=== PATIENT | male | born 1980 | race African-American/Black ===

== ENCOUNTER 2017-12-25 21:26 | Emergency (ER) | payer BC ==
[~2017-12-25 21:26] MED LIST: AMOX500C2 PO; APIX5TAB2 PO; HYDR-1231 PO; METO25TA2 PO; PNT40TEC PO
--- OUTSIDE RECORDS SUMMARY | 2017-12-26 05:43 | XMS REPORT | Continuity of Care Document ---
Author Author [facility] Address Unknown Phone Unavailable Allergies Active Description Code Type Severity Reaction Onset Reported/Identified Relationship to Patient Clinical Status Yes No Known Drug Allergies [id number] Drug Allergy Unknown N/A 05/10/2012 Medications There is no data. Problems Date Dx Coded Attending Type Code Diagnosis Diagnosed By 05/10/2012 Ot 786.52 05/10/2012 Ot 786.59 05/18/2012 LUIS FELIPE SINGH DO 786.50 CHEST PAIN 11/19/2013 BINA DEVRIES Ot 522.5 03/17/2014 ALMA LIU, MORRIS Cam Ot 882.0 03/17/2014 ALMA LIU, MORRIS Cam Ot E000.0 03/17/2014 ALMA LIU, MORRIS Cam Ot E849.3 03/17/2014 ALMA LIU, MORRIS Cam Ot E919.9 03/17/2014 MORRIS MARQUEZ MD Ot V06.1 07/05/2014 Ot 729.5 09/23/2014 RADHA BUSH MD Ot 910.4 09/23/2014 RADHA BUSH MD Ot E000.8 09/23/2014 RADHA BUSH MD Ot E906.4 09/27/2014 LEANNE DOVE MD Ot 278.00 09/27/2014 LEANNE DOVE MD Ot 397.0 09/27/2014 LEANNE DOVE MD Ot 424.0 09/27/2014 LEANNE DOVE MD Ot 427.31 09/27/2014 LEANNE DOVE MD Ot V85.38 09/27/2014 LEANNE DOVE MD Ot 278.00 09/27/2014 LEANNE DOVE MD Ot 397.0 09/27/2014 LEANNE DOVE MD Ot 424.0 09/27/2014 LEANNE DOVE MD Ot 427.31 09/27/2014 LEANNE DOVE MD Ot V85.38 09/27/2014 PETTY LIU, LEANNE Horan Ot 278.00 09/27/2014 PETTY LIU, LEANNE Horan Ot 397.0 09/27/2014 PETTY LIU, LEANNE Horan Ot 424.0 09/27/2014 PETTY LIU, LEANNE Horan Ot 427.31 09/27/2014 PETTY LIU, LEANNE Horan Ot V85.38 09/28/2014 PETTY LIU, LEANNE Horan Ot 278.00 09/28/2014 PETTY LIU, LEANNE Horan Ot 397.0 09/28/2014 PETTY LIU, LEANNE J Ot 424.0 09/28/2014 PETTY LIU, LEANNE J Ot 427.31 09/28/2014 PETTY LIU, LEANNE Horan Ot V85.38 09/28/2014 PETTY LIU, LEANNE Horan Ot 278.00 09/28/2014 PETTY LIU, LEANNE Horan Ot 327.23 09/28/2014 PETTY LIU, LEANNE Horan Ot 397.0 09/28/2014 PETTY LIU, LEANNE Horan Ot 424.0 09/28/2014 PETTY LIU, LEANNE Horan Ot 427.31 09/28/2014 PETTY LIU, LEANNE Horan Ot 786.59 09/28/2014 PETTY LIU, LEANNE Horan Ot V85.38 11/01/2014 [place] Ot 278.00 11/01/2014 [place] Ot 427.31 11/01/2014 [place] Ot 785.1 11/01/2014 [place] Ot 786.50 Procedures There is no data. Results There is no data. Encounters ACCT No. Visit Date/Time Discharge Status Pt. Type Provider Facility Loc./Unit Complaint [id number] 05/18/2012 17:37:00 05/18/2012 23:59:59 CLS Outpatient LUIS FELIPE SINGH DO [id number] 10/13/2014 06:45:00 10/13/2014 23:59:59 CLS Outpatient [place] [facility] CARD [id number] 09/26/2014 08:58:00 09/28/2014 10:25:00 DIS Inpatient LEANNE DOVE MD [facility] [id number] 09/23/2014 17:14:00 09/23/2014 18:04:00 DIS Emergency ELEAZAR LIU, RADHA Hayes [facility] ER [id number] 03/16/2014 23:11:00 03/17/2014 00:43:00 DIS Emergency ALMA LIU, MORRIS Cam [facility] ER [id number] 11/19/2013 13:31:00 11/19/2013 15:35:00 DIS Emergency BINA DEVRIES [facility] ER [id number] 07/05/2014 17:51:00 Document Registration [id number] 05/10/2012 18:25:00 Document Registration
== END 2017-12-25 23:44 | disposition left against medical advice (07) ==
LOC: EDUNIT# 21:26 → ER 21:27
DX: T63.301A Toxic effect of unspecified spider venom, accidental (unintentional), initial encounter (principal)

== ENCOUNTER 2021-11-19 23:18 | Emergency (ER) | payer BC, OTHER ==
[2021-11-19 23:35] VITALS: BP 134/95
--- NOTE | 2021-11-19 23:51 | ED EENT ---
History of Present Illness General Chief Complaint: Ear Problems Stated Complaint: PRESSURE IN EARS Nursing Triage Note: pt presents with c/o bilateral ear pressure. denies pain. reports onset one hour ago. Source: patient Exam Limitations: no limitations History of Present Illness Date Seen by Provider: Nov 19, 2021 Time Seen by Provider: 23:36 Initial Comments Patient to the ER by private conveyance with chief complaint that this evening he started having some whooshing in his ears pressure without pain especially on the right side and feeling like his ears need to pop. No nasal congestion fevers chills runny nose sore throat. Allergies and Home Medications Allergies Coded Allergies: No Known Drug Allergies (Unverified , 05/10/12) Patient Home Medication List Home Medication List Reviewed: Yes Apixaban (Eliquis Tablet) 5 Mg Tablet, 5 MG PO BID Prescribed by: LEANNE DOVE on 09/28/14812 Methylprednisolone (Methylprednisolone Dose Pack) 4 Mg Tab.ds.pk, 4 MG PO UD Prescribed by: SHANIQUA DAVILA on 11/19/21 4247 Metoprolol Tartrate (Lopressor Tab) 25 Mg Tablet, 12.5 MG PO BID Prescribed by: LEANNE DOVE on 09/28/14812 Pantoprazole Sod (Protonix Tab) 40 Mg Tab, 40 MG PO DAILY@0700 Prescribed by: LEANNE DOVE on 09/28/14812 Review of Systems Review of Systems Constitutional: No chills, No diaphoresis Eyes: Denies Blindness, Denies Blurred Vision Ears: See HPI, Dizziness; Denies Pain; Tinnitus Nose: denies clots, denies congestion Respiratory: No cough, No phlegm Cardiovascular: No chest pain, No palpitations Gastrointestinal: No abdominal pain, No nausea, No vomiting All Other Systems Reviewed Negative Unless Noted: Yes Past Bhpwyqz-Mhyoyr-Qllooh Hx Patient Social History Tobacco Use?: No Substance use?: No Alcohol Use?: No Pt feels they are or have been: No Immunizations Up To Date Tetanus Booster (TDap): More than 5yrs Influenza Vaccine Up-to-Date: No; Not Current Past Medical History Asthma Reproductive Disorders: No Sexually Transmitted Disease: No Loss of Vision: Denies Hearing Impairment: Denies Family Medical History Cardiovascular disease 19 MOTHER (cva) Diabetes mellitus 19 MOTHER Diabetes, Stroke Physical Exam Vital Signs Vital Signs - First Documented 11/19/21 23:35 Pulse 89 Resp 18 B/P (MAP) 134/95 (108) Pulse Ox 99 Height, Weight, BMI Height: 0'74.00" Weight: 320lbs. 8.0oz. 145.206174ym; BMI Method:Stated General Appearance: WD/WN, no apparent distress Eyes: bilateral eye normal inspection, bilateral eye PERRL, bilateral eye EOMI Ears: right ear TM red (Moderately injected but still can be seen through and the TM is retracted down); left ear TM normal; bilateral ear auricle normal, bilateral ear canal normal Nose: normal inspection; No active bleeding, No discharge Mouth/Throat: normal mouth inspection, pharynx normal Neurologic/Psychiatric: alert, normal mood/affect, oriented x 3 Skin: normal color, warm/dry Progress/Results/Core Measures Results/Orders Vital Signs/I&O 11/19/21 23:35 Pulse 89 Resp 18 B/P (MAP) 134/95 (108) Pulse Ox 99 Blood Pressure Mean: 108 Departure Impression Primary Impression: Right otitis media with effusion Additional Impression: Labyrinthitis of right ear Disposition: 01 HOME, SELF-CARE Condition: Stable Departure-Patient Inst. Decision time for Depature: 23:50 Referrals: NO,LOCAL PHYSICIAN (PCP/Family) Primary Care Physician Patient Instructions: Serous Otitis Media (DC) Add. Discharge Instructions: You have an effusion of your ear causing the eardrum to be sucked down which is causing the pressure and the difficulty with balance. If you are having problems with balance then use 1 or 2 tablets of meclizine/Antivert every 6 hours as needed. field service supervisor a bottle of fluticasone/Flonase and use 1 puff in each nostril twice a day for 1 to 2 weeks until your symptoms go away. Usually start to see imp rovement in 3 to 4 days of using the Flonase. If you develop fever or severe pain this may be indication of a bacterial infection in your ear and you need to be rechecked out for potential antibiotics. You may use Claritin/loratadine or Zyrtec/cetirizine 10 mg daily to help reduce allergies which can also be a common cause of this. If after 1 to 2 weeks of Flonase the symptoms do not improve then go ahead and flower picker the Medrol Dosepak and use that in addition to Flonase. All discharge instructions reviewed with patient and/or family. Voiced understanding. Scripts Methylprednisolone (Methylprednisolone Dose Pack) 4 Mg Tab.ds.pk 4 MG PO UD for 6 Days, #21 PKG 0 Refills PER DOSE PACK INSTRUCTIONS Prov: SHANIQUA DAVILA 11/19/21 Work/School Note: Work Release Form Date Seen in the Emergency Department: Nov 19, 2021 Return to Work: Nov 20, 2021 Restrictions: No Restrictions SHANIQUA DAVILA Nov 19, 2021 23:51
[2021-11-19] MEDS ORDERED: METH4TAB10 PO (23:55)
== END 2021-11-20 00:07 | disposition home or self-care (01) ==
LOC: EDUNIT# 23:18 → ER 23:27
DX: H65.93 Unspecified nonsuppurative otitis media, bilateral (principal); H83.03 Labyrinthitis, bilateral
CPT/HCPCS: 99281